=== PATIENT | male | born 1990 | race Caucasian/White ===

== ENCOUNTER 2020-04-10 10:10 | Day surgery (SDC) | payer SELFPAY ==
[2020-04-10] VITALS (11 sets, daily range): BP systolic 103–164; BP diastolic 49–102; PULSE 50–82; RESP 11–20; TEMP 36.4–37.2; O2SAT 97–100
--- NOTE | ~2020-04-10 | XR_ITS ---
EXAMINATION: XR abdomen/kub 1V EXAM DATE: 04/10/2020 11:12 INDICATION: Right UVJ 5 mm stone. TECHNIQUE: Frontal projection(s) of the abdomen for interpretation. There is no prior study for rosa elena rivera. FINDINGS: Probable identification of the right ureterovesicular junction 5 mm stone, finding indicat ed. Nonobstructive bowel gas pattern. Lung bases are clear. Bones are unremarkable. IMPRESSION: Probable identification right UVJ stone. Reviewed, dictated and finalized at location B.
--- NOTE | ~2020-04-10 | CT_ITS ---
EXAMINATION: CT abdomen pelvis wo con EXAM DATE: 04/10/2020 11:05 INDICATION: Right-sided flank pain. History kidney stones. TECHNIQUE: Spiral CT of the abdomen and pelvis was performed without contrast. Axial, coronal and sag ittal images were reviewed. The dose-length product (DLP) for this examination was 370.60 mGy-cm. T he exposure was tailored according to patient size (auto mA exposure control), and iterative reconstr uction (ASIR) was used as additional dose reduction technique. There is no prior study for compariso n. FINDINGS: There is a 4 x 5 mm stone in the right ureterovesicular junction with mild obstructive neph ropathy. No other genitourinary calcifications. The prostate is unremarkable. The bladder is collap sed at time of imaging limiting evaluation. The liver, spleen, adrenal glands and pancreas are unrem arkable. Gallbladder is unremarkable. No biliary obstruction. There is no retroperitoneal or pelvi c lymphadenopathy. The appendix is normal. The stomach and small bowel are unremarkable. There is expected amount of c olonic stool. No free intraperitoneal gas. The heart is normal in size. There are no pericardial or pleural effusions. The lung bases are unremarkable. There are no osteoblastic or osteolytic les ions identified. IMPRESSION: 1. Right UVJ 5 mm stone, mild obstructive nephropathy. Reviewed, dictated and finalized at location B.
--- NOTE | ~2020-04-10 | XR_ITS ---
EXAMINATION: XR retrograde pyelo w/stent RT EXAM DATE: 04/10/2020 16:22 INDICATION: Retrograde pyelogram. Obstructive nephropathy. Right UVJ stone. TECHNIQUE: Fluoroscopy used during XR retrograde pyelo w/stent RT performed by Dr. Jose green MD. The DAP for this procedure was 0.2 mGym2. FINDINGS: Possible identification of the right UVJ stone on clam sorter. The right ureter was cannulated, injected. There is mild right hydroureteronephrosis. A double-J ureteral stent was placed. Correlate with procedure note. IMPRESSION: Fluoroscopy used during XR retrograde pyelo w/stent RT. Reviewed, dictated and finalized at location B.
[2020-04-10 10:42] LABS: Basophils Percent Auto 0.4 % (0.2-1.2); Eosinophils Absolute Auto 0.2 K/mm3 (0-0.3); Eosinophils Percent Auto 1.8 % (0-4.4); Hematocrit 38.6 % (42.0-52.0); Hemoglobin 12.8 g/dL (14.0-18.0); Immature Granulocyte Absolute 0.03 K/mm3 (0.00-0.031); Immature Granulocyte Percent A 0.3 % (0-0.5); Mean Corpuscular HGB Conc 33.2 g/dl (32-36); Mean Corpuscular Hemoglobin 29.9 pg (26-34); Mean Corpuscular Volume 90.2 fl (80-100); Mean Platelet Volume 9.8 fl (7.4-10.4); Monocytes Percent Auto 11.5 % (2.6-8.5); Neutrophils Absolute Auto 5.9 K/mm3 (1.3-6.7); Platelet Count Result 353 k/mm3 (150-375); Red Blood Count 4.28 M/mm3 (4.6-6.20); Red Cell Distribution Width 12.6 % (11.5-14.5)
[2020-04-10 10:47] LABS: Add Urine Microscopic? YES; Appearance Urine Clear (Clear); Bilirubin Urine 1+ (Negative); Blood Urine 1+ (Negative); Calcium Oxalate Crystals Urine Present /hpf; Color Urine Yellow (Yellow); Glucose Urine UA Negative (Negative); Ketones Urine 1+ mg/dL (Negative); Leukocyte Esterase Ur Trace LEU/UL (Negative); Mucus Urine Heavy /lpf; Nitrate Urine Negative (Negative); Protein Urine 2+ mg/dL (Negative); Squamous Epithelial Cell Urine Rare /hpf (Few)
[2020-04-10 10:50] LABS: Specific Grav Ur 1.036 (1.001-1.035)
[2020-04-10] MEDS: SODIUM CHLORIDE 0.9% IV 1,000 ML 999 ML IV CONT (10:55)
[2020-04-10] MEDS: ONDANSETRON INJ 4 MG/2 ML VIAL IV PUSH (10:55)
[2020-04-10] MEDS: FAMOTIDINE 20 MG/2 ML VIAL IV PUSH (10:55)
[2020-04-10] MEDS: MORPHINE SULFATE 4 MG/ML INJ IV PUSH (10:55)
[2020-04-10 11:00] LABS: Anion Gap 9 mmol/L (8-16); Blood Urea Nitrogen 11 mg/dL (9-20); Carbon Dioxide 25 mmol/L (22-30); Chloride 104 mmol/L (98-107); Estimated Glomerular Filt Rate > 60; Glucose 99 mg/dL (75-110); Potassium 3.3 mmol/L (3.4-5.0); Sodium 138 mmol/L (137-145)
--- NOTE | 2020-04-10 11:21 | ED.ABDPAIN ---
HPI - Abdominal Pain General Chief Complaint: Abdominal Pain <Benjamin Griffin PA-C Last Filed: 04/10/20 12:56> Stated Complaint: kidney stone <NICK Puckett Last Filed: 04/10/20 12:56> Time Seen by Provider: 04/10/20 10:38 <NICK Puckett Last Filed: 04/10/20 12:56> Source: patient and family <NICK Puckett Last Filed: 04/10/20 12:56> Mode of arrival: ambulatory <NICK Puckett Last Filed: 04/10/20 12:56> Limitations: no limitations <Benjamin Griffin PA-C Last Filed: 04/10/20 12:56> History of Present Illness HPI narrative: Patient is a 30-year-old male who presents with right flank pain diagnosed with a kidney stone prior at outside hospital has follow-up with urology in the next week patient has been taking hydrocodone and ciprofloxacin with little improvement notes he has had intermittent vomiting patient notes that the pain today intensified. Patient presents with mother and uncomfortable state without any distress <Benjamin Griffin PA-C Last Filed: 04/10/20 12:56> Related Data Home Medications: Home Medications Medication Instructions Recorded Confirmed ciprofloxacin HCl 04/10/20 hydrocodone-acetaminophen 04/10/20 <Benjamin Griffin PA-C Last Filed: 04/10/20 12:56> Allergies/Adverse Reactions: Allergies Allergy/AdvReac Type Severity Reaction Status Date / Time No Known Allergies Allergy Unverified 04/10/20 10:41 <NICK Puckett Last Filed: 04/10/20 12:56> Review of Systems Review of Systems: All systems reviewed & are unremarkable except as noted in HPI and below <NICK Puckett Last Filed: 04/10/20 12:56> [facility] Past Medical History Medical History: Medical History Urolithiasis <NICK Puckett Last Filed: 04/10/20 12:56> Social History Social History: Social History Gender identity (if verbalized by the patient): Male <NICK Puckett Last Filed: 04/10/20 12:56> Exam Narrative: Exam Narrative: GENERAL: Well-appearing, well-nourished, uncomfortable, and in no acute distress. HEAD: Normocephalic, atraumatic. EYES: PERRLA and EOMI. ENT: Nares clear, no rhinorrhea or epistaxis. Mucous membranes moist. Oropharynx without tonsillar hypertrophy exudate or other lesions. CHEST: Clear to auscultation. No respiratory distress. No wheezes rales or rhonchi HEART: Regular rate and rhythm. No murmur heard. Normal peripheral pulses. ABDOMEN: Soft, nontender, nondistended EXTREMITIES: Normal range of motion. No edema. SKIN: Warm, dry, no rash. NEURO: No focal deficits. Alert and oriented x3. Cranial nerves II through XII grossly intact PSYCH: Normal mood and affect. <NICK Puckett Last Filed: 04/10/20 12:56> Course Course Emergency Course: Patient in the room at this time aware of case findings treatment plan and diagnosis <NICK Puckett Last Filed: 04/10/20 12:56> [employer]/PA Physician Supervision Attestation for Benjamin Griffin at 1313. [id number] with the patient and his grandmother Pauline. He says his pain is 8 out of 10 and I offered more pain medicine. He agrees that going to the operating room and having his kidney stone removed would be a good idea. He is never had a kidney stone before. I advised him to drink 64 ounces of water daily for the rest of his life, and if his urine looks dark to drink more water. He agrees. <Pauline Rosario MD - Last Filed: 04/10/20 13:16> Consultations Consultation #1: Patient case discussed with urology will take patient to the OR <NICK Puckett Last Filed: 04/10/20 12:56> Date: 04/10/20 <NICK Puckett Last Filed: 04/10/20 12:56> Time: 12:55 <NICK Puckett Last Filed: 04/10/20 12:56> Vital Signs
--- NOTE | 2020-04-10 12:55 | WPDURCON ---
Assessment and Plan Assessment and plan (1) Urolithiasis: Code(s): N20.9 - Urinary calculus, unspecified Status: Acute Assessment and Plan: Plan to go to the OR: Cysotscopy, right ureteroscopy with stone extraction, possible right ureteral stent placement, right retrograde pyelogram, possible holmium laser. Obtain consent. Keep NPO Urology Consult Note HPI Date Seen: 04/10/20 Primary Care Provider: Chadwick Lambert, Consult Narrative Narrative: Joao Maldonado is a 30 year old male who presents to the ER today for worsening right flank pain and vomiting. He was diagnosed with a right ureteral stone at [place] last in the ER and was sent home with Ciprofloxacin and Hydrocodone and was told to follow up with a urologist. He has an appointment with Dr. Garcia next week, but his pain became too severe today which led him back to our ER. He is afebrile, denies hematuria, dysuria, frequency or urgency. He is having right flank pain which radiates to the right lower quadrant and is nauseated and vomiting. His CT/KUB today shows a 5mm UVJ stone in the right ureter. WBC is 9.0, creatinine is 1.00, UA shows blood and mild leukocytes. Review of Systems Cardiovascular: Cardiovascular: Denies chest pain Respiratory: Respiratory: Denies no additional respiratory complaints Gastrointestinal: Gastrointestinal: Denies abdominal pain, Reports coffee ground emesis, Reports nausea and Reports vomiting Genitourinary: Genitourinary: Denies hematuria, Denies dysuria, Denies flank pain and Denies urinary urgency [facility] Past Medical History Medical History Urolithiasis Social History Social History Gender identity (if verbalized by the patient): Male Meds Home Medications and Allergies Home Medications Medication Instructions Recorded Confirmed Type ciprofloxacin HCl 04/10/20 History hydrocodone-acetaminophen 04/10/20 History Allergies Allergy/AdvReac Type Severity Reaction Status Date / Time No Known Allergies Allergy Unverified 04/10/20 10:41 Vital Signs Vital Signs - 24 hr 04/10/20 10:20 04/10/20 10:57 04/10/20 12:14 Temperature 97.6 F Pulse Rate 80 74 78 Respiratory Rate 18 18 20 Blood Pressure 147/102 H 164/96 H 144/78 H Pulse Oximetry 98 100 99 Exam Resp: Effort & Inspection: normal respiratory effort Cardio: Rate: regular rate GI: GI Palp: Yes Soft to palpation and Yes Tenderness to palpation present (GI) : General: Yes CVA tenderness on the right Extrem: General: no edema Results Labs CBC & Chem 7: 04/10/20 10:30 04/10/20 10:30 Labs: Short CBC 04/10/20 Range/Units 10:30 WBC 9.0 (4.5-10.0) K/mm3 Hgb 12.8 L (14.0-18.0) g/dL Hct 38.6 L (42.0-52.0) % Plt Count 353 (150-375) k/mm3 BMP 04/10/20 10:30 Sodium 138 Potassium 3.3 L Chloride 104 Carbon Dioxide 25 BUN 11 Creatinine 1.00 Glucose 99 Calcium 9.0 Urine 04/10/20 Range/Units 10:31 Urine Color Yellow (Yellow) Urine Appearance Clear (Clear) Urine pH 5.0 (5.0-9.0) Ur Specific [place] 1.036 H (1.001-1.035) Urine Protein 2+ H (Negative) mg/dL Urine Glucose (UA) Negative (Negative) mg/dL
[2020-04-10] MEDS: LACTATED RINGERS 1,000 ML 30 ML IV CONT ×3 (13:35→17:34)
--- NOTE | 2020-04-10 14:16 | WPDHPUPDATE1 ---
History and Physical Update Update Date/Time: 04/10/20 14:16 History and Physical has been reviewed, including an updated exam of the patient. There are NO changes in the patient's condition. Risks, benefits, and alternatives have been discussed and questions answered. Patient agrees to proceed with procedure. Plan for cysto , right rpg, right ureteroscopy with stone extraction, possible holmium laser and stent placement.
--- NOTE | 2020-04-10 14:44 | WPDANESEPPF ---
Anes - Initial Pre Proc Eval Procedure: Operation Date: 04/10/20 14:00 Proposed Procedures p Cystoscopsy, Right Retrograde Pyelogram, Stone Extraction, Possible Right Ureteral Stent Placement - Jose Meyers MD s Holmium Laser Procedure - Jose Meyers MD Date/Time: 04/10/20 14:44 Surgeon: Jose Meyers MD Pre Op Diagnosis: kidney stone Patient Data Age: 30 Gender: M Height: 5 ft 11 in Weight: 76.9 kg Last Vital Signs Temp 37.2 C 04/10/20 13:35 Pulse 64 04/10/20 13:35 Resp 16 04/10/20 13:35 BP 146/82 H 04/10/20 13:35 Pulse Ox 99 04/10/20 13:35 Allergies Allergy/AdvReac Type Severity Reaction Status Date / Time No Known Allergies Allergy Unverified 04/10/20 10:41 Home Medications Medication Instructions Recorded Confirmed Type ciprofloxacin HCl 500 mg PO BID 04/10/20 04/10/20 History hydrocodone-acetaminophen 1 tablet Q4-6H PRN 04/10/20 04/10/20 History Laboratory Tests 04/10/20 04/10/20 04/10/20 10:30 10:30 10:31 WBC 9.0 K/mm3 K/mm3 (4.5-10.0) RBC 4.28 M/mm3 L M/mm3 (4.6-6.20) Hgb 12.8 g/dL L g/dL (14.0-18.0) Hct 38.6 % L % (42.0-52.0) MCV 90.2 fl fl (80-100) MCH 29.9 pg pg (26-34) MCHC 33.2 g/dl g/dl (32-36) RDW 12.6 % % (11.5-14.5) Plt Count 353 k/mm3 k/mm3 (150-375) MPV 9.8 fl fl (7.4-10.4) Immature Gran % (Auto) 0.3 % % (0-0.5) Neut % (Auto) 65.0 % % (45.5-73.1) Lymph % (Auto) 21.0 % % (18.3-44.2) [place] % (Auto) 11.5 % H % (2.6-8.5) Eos % (Auto) 1.8 % % (0-4.4) Baso % (Auto) 0.4 % % (0.2-1.2) Lymph # (Auto) 1.90 K/mm3 K/mm3 (0.9-3.2) [place] # (Auto) 1.0 K/mm3 H K/mm3 (0.1-0.6) Eos # (Auto) 0.2 K/mm3 K/mm3 (0-0.3) Baso # (Auto) 0.0 K/mm3 K/mm3 (0.0-0.1) Abs Immat Gran (auto) 0.03 K/mm3 K/mm3 (0.00-0.031) Absolute Neuts (auto) 5.9 K/mm3 K/mm3 (1.3-6.7) Absolute Nucleated RBC 0.0 K/mm3 K/mm3 (0.0-0.012) Nucleated RBC % 0.0 % % (0.0-0.2) Sodium 138 mmol/L mmol/L (137-145) Potassium 3.3 mmol/L L mmol/L (3.4-5.0) Chloride 104 mmol/L mmol/L (98-107) Carbon Dioxide 25 mmol/L mmol/L (22-30) Anion Gap 9 mmol/L mmol/L (8-16) BUN 11 mg/dL mg/dL (9-20) Creatinine 1.00 mg/dL mg/dL (0.7-1.3) Estim Creat Clear Calc Not Reportable Estimated GFR > 60 (59 - ) Glucose 99 mg/dL mg/dL (75-110) Calcium 9.0 mg/dL mg/dL (8.4-10.2) Urine Color Yellow (Yellow) Urine Appearance Clear (Clear) Urine pH 5.0 (5.0-9.0) Ur Specific [place] 1.036 H (1.001-1.035) Urine Protein 2+ mg/dL H mg/dL (Negative) Urine Glucose (UA) Negative mg/dL mg/dL (Negative) Urine Ketones 1+ mg/dL H mg/dL (Negative) Ur Blood (Man) 1+ H (Negative) Urine Nitrate Negative (Negative) Urine Bilirubin 1+ H (Negative) Urine Urobilinogen 2.0 mg/dL H mg/dL (<2.0) Leukocyte Esterase Rfl Trace DANNY/UL H DANNY/UL (Negative) Urine RBC 11-20 /hpf H /hpf (0-2) Urine WBC 4-6 /hpf H /hpf Ur Squamous Epith Cells Rare /hpf /hpf (Few) Calcium Oxalate Crystal Present /hpf /hpf (None) Urine Mucus Heavy /lpf H /lpf Patient hx anesthesia problems: none Family hx anesthesia problems: none PMFSH Past Medical History Medical History Urolithiasis Social History Social History Gender identity (if verbalized by the patient): Male Anes - Eval Final PreProcedure Day of Procedure 04/10/20 14:4
[2020-04-10] MEDS: ceFAZolin 2 GM/D5W 50 ML 2 GM/50 ML BAG IVPB (15:53)
[2020-04-10] MEDS: LIDOCAINE HCL 2% GEL UROJET 10 ML PKG MUCOUS MEM (16:11)
--- NOTE | 2020-04-10 16:20 | PM.PROC ---
Procedure Note - Detailed Date of procedure: 04/10/20 Pre-op diagnosis: kidney stone 5 mm right distal ureteral calculus Post-op diagnosis: same Procedure performed: cystoscopy, right retrograde pyelogram, right ureteroscopy with stone extraction, right ureteral stent placement 4.8 [place] contour Description of procedure: patient was taken the operative suite and correctly identified. Once anesthesia was obtained he was placed in the dorsal lithotomy position and prepped and draped usual sterile fashion. Twenty-two [place] scope was inserted in the bladder. There is no tumors noted. The right ureteral orifice was cannulated with a guidewire. An 8/10 dilator was used to dilate the orifice. A rigid ureteral scope was then inserted and the stone was visualized. Using an escape basket retrieve the stone sent for analysis. Pyelogram was then performed to confirm placement of the stent in the renal pelvis. A 4.8 [place] contour stent was then placed with the proximal end coiled in the renal pelvis and the distal end in the bladder. Bladder was drained 2% viscous lidocaine was inserted into urethra patient is taken recovery stable condition. We discharged home with pain meds and antibiotics. He will follow up in a week's time for stent removal. Anesthesia: GLMA Surgeon: Jose Meyers MD Drains: Yes Packing: No Pathology: yes Complications: No immediate complications Condition: stable Disposition: PACU
== END 2020-04-10 18:08 | disposition home or self-care (01) ==
LOC: ANHED 12:56 → ANHSURGERY 13:32
PROVIDERS: Emergency Provider Emergency Medicine; PCP Internal Medicine; Visit Provider Urology
PROC: (CPT 52352; principal; 2020-04-10 14:00)
DX: N20.0 Calculus of kidney (principal)
CPT/HCPCS: 52332; 36415; 74018; 74176; 74420; 80048; 81001; 82365; 85025; 88300; 96361; 96374; 96375; 99285; A9270; C1769; C2617; J0690; J1100; J1170; J2250; J2270; J2405; J2704; J3010; J7030; J7120; Q9966